=== PATIENT | female | born 1985 | race African-American/Black ===

== ENCOUNTER 2017-03-30 11:40 | Emergency (ER) | payer OTHER ==
--- NOTE | 2017-03-30 11:53 | PDOC ---
History of Present Illness - General History Source: Patient Exam Limitations: No Limitations - History of Present Illness Initial Comments: 03/30/17 15:58 The patient is a 32 year old female, BIBA with no significant past medical history who presents to the emergency department with the sudden onset of non radiating R sided chest pain today. The patient reports moving boxes in at work earlier today, when she felt a sudden onset of R shoulder/chest pain just as she was pushing them. She also reports difficulty taking a deep breath due to pain but denies SOB. She notes her chest pain is often made worse with any movement and deep inspiration. She denies recent fevers, chills, headache or dizziness. She denies recent nausea, vomit, diarrhea or constipation. She denies recent dysuria, frequency, urgency or hematuria. PT states she was in her USOH prior to this pain coming on. No hx similar pain. No tx tried. Allergies: NKA Past surgical history: None reported. Social history: Current smoker. +Marijuana use.Denies EtOH use. <Sammy Everett - Last Filed: 03/30/17 15:58> <Andreia Ledezma - Last Filed: 03/31/17 00:10> - General Stated Complaint: CHEST PAIN Time Seen by Provider: 03/30/17 11:44 Past History <Sammy Everett - Last Filed: 03/30/17 15:58> <Andreia Ledezma - Last Filed: 03/31/17 00:10> - Past Medical History Allergies/Adverse Reactions: Allergies Allergy/AdvReac Type Severity Reaction Status Date / Time Penicillins Allergy Mild Hives Verified 03/30/17 13:36 Home Medications: Ambulatory Orders Naproxen 500 mg PO BID PRN #10 tablet 03/30/17 Review of Systems - Review of Systems Able to Perform ROS?: Yes Comments:: 03/30/17 15:58 GENERAL/CONSTITUTIONAL: No fever or chills. No weakness. HEAD, EYES, EARS, NOSE AND THROAT: No change in vision. No ear pain or discharge. No sore throat. GASTROINTESTINAL: No nausea, vomiting, diarrhea or constipation. GENITOURINARY: No dysuria, frequency, or change in urination. CARDIOVASCULAR: +chest pain. no shortness of breath. RESPIRATORY: No cough, wheezing, or hemoptysis. MUSCULOSKELETAL: No joint or muscle swelling or pain. No neck or back pain. SKIN: No rash NEUROLOGIC: No headache, vertigo, loss of consciousness, or change in strength/ sensation. ENDOCRINE: No increased thirst. No abnormal weight change. HEMATOLOGIC/LYMPHATIC: No anemia, easy bleeding, or history of blood clots. ALLERGIC/IMMUNOLOGIC: No hives or skin allergy. <Sammy Everett - Last Filed: 03/30/17 15:58> *Physical Exam - Vital Signs Last Vital Signs Temp Pulse Resp BP Pulse Ox 98 F 51 L 18 109/76 98 03/30/17 12:10 03/30/17 12:10 03/30/17 12:10 03/30/17 12:10 03/30/17 12:10 - Physical Exam Comments: 03/30/17 15:59 GENERAL: Awake, alert, and fully oriented, in no acute distress HEAD: No signs of trauma EYES: PERRLA, EOMI, sclera anicteric, conjunctiva clear ENT: Auricles normal inspection, hearing grossly normal, nares patent, oropharynx clear without exudates. Moist mucosa NECK: Normal ROM, supple, no lymphadenopathy, JVD, or masses LUNGS: Breath sounds equal, clear to auscultation bilaterally. No wheezes, and no crackles HEART: Right parasternal pinpoint exquisite tenderness to palpation. Regular rate and rhythm, normal S1 and S2, no murmurs, rubs or gallops ABDOMEN: Soft, nontender, normoactive bowel sounds. No guarding, no rebound. No masses EXTREMITIES: Normal range of motion, no edema. No clubbing or cyanosis. No cords , erythema, or tenderness BACK: No midline spinal tenderness in cervical/thoracic/lumbar region NEUROLOGICAL: Normal speech, cranial nerves intact, negative pronator drift, 5/ 5 strength in all 4 extremities, normal sensation to light touch in all 4 extremities, normal cerebellar exam, normal gait, normal reflexes and tone SKIN: Warm, Dry, normal turgor, no rashes or lesions noted. <Sammy Everett - Last Filed: 03/30/17 15:58> Heart Score/ECG Review #1 03/30/17 12:13 Twelve-lead EKG was performed and reviewed by me. Sinus bradycardia, rate 55. Normal axis and intervals. No ST elevations or T-wave inversions. <Andreia Ledezma - Last Filed: 03/31/17 00:10> ED Treatment Course - ADDITIONAL ORDERS Additional order review: Laboratory Results 03/30/17 13:55 Urine HCG, Qual Negative - Medications Given in the ED: ED Medications Discontinued Medications Generic Name Dose Route Start Last Admin Trade Name Luis PRN Reason Stop Dose Admin Acetaminophen 1,000 mg 03/30/17 13:31 03/30/17 13:50 Tylenol - PO 03/30/17 13:32 1,000 mg ONCE ONE Administration Ketorolac Tromethamine 30 mg 03/30/17 15:28 03/30/17 15:41 Toradol Injection - IM 03/30/17 15:29 30 mg ONCE ONE Administration <Sammy Everett - Last Filed: 03/30/17 15:58> Medical Decision Making - Medical Decision Making 03/30/17 12:11 32-year-old female with no significant past medical history presents emergency Department with right-sided chest pain after pushing a heavy box at 10:50 AM this morning. Vitals unremarkable. Exam with reproducible chest pain consistent with costochondritis. EKG non ischemic. Pt does not meet any PERC criteria and thus unlikely PE. Pt with hx smoking, but no other risk factors for ACS. No personal or family hx of cardiac at young age. Story not consistent with cardiac pain and thus unlikely ACS. Plan is to check urine test, chest x-ray and control pain and reassess. 03/30/17 14:50 Patient reports improvement in pain after receiving Tylenol, but reports persistent pain. Urine test is negative. If negative will order Toradol and chest x-ray. 03/30/17 16:56 Urine test is negative. Patient received Toradol, feels better and is ambulating in the ED. Chest x-ray pending 03/30/17 17:14 CXR done, on my read is normal. Informed patient that radiology needs to offically read but we will call if abnormal. Pt reports improvement in pain. Appears clinically well, requests DC home. I discussed the physical exam findings, ancillary test results and final diagnoses with the patient. I answered all of the patient's questions. The patient was satisfied with the care received and felt comfortable with the discharge plan and treatment plan. The patient will call their primary care physician within 24 hours to arrange follow-up and will return to the Emergency Department with any new, persistent or worsening symptoms. <Andreia Ledezma - Last Filed: 03/31/17 00:10> *DC/Admit/Observation/Transfer - Attestations Scribe Attestion: 03/30/17 15:59 Documentation prepared by Sammy Everett, acting as medical data entry clerk for Andreia Ledezma MD, /DO. <Sammy Everett - Last Filed: 03/30/17 15:58> - Discharge Dispostion Admit: No - Attestations Physician Attestion: 03/30/17 17:18 I, Dr. Andreia Ledezma MD, attest that this document has been prepared under my direction and personally reviewed by me in its entirety. I further attest, that it accurately reflects all work, treatment, procedures and medical decision -making performed by me. <Andreia Ledezma - Last Filed: 03/31/17 00:10> Diagnosis at time of Disposition: Chest pain - Discharge Dispostion Disposition: HOME Condition at time of disposition: Stable - Prescriptions Prescriptions: Naproxen 500 mg PO BID PRN #10 tablet PRN Reason: Pain - Referrals - Patient Instructions Printed Discharge Instructions: DI for Chest Pain Additional Instructions: Follow-up with your primary care doctor within 1-2 days. Take naproxen as needed for pain. Return to the emergency department if you have any new, worsening or concerning symptoms.
[2017-03-30 12:12] VITALS: TEMP 98; BMI 25.9
[2017-03-30] MEDS ORDERED: ACETAMINOPHEN 500 MG TABLET (FP) PO ONE (13:31)
[2017-03-30] MEDS ORDERED: ACETAMINOPHEN 325 MG TABLET (FP) ONE (13:50)
[2017-03-30] MEDS ORDERED: KETOROLAC TROMETHAMINE 30 MG/1 ML VIAL IM ONE (15:28)
[2017-03-30] MEDS ORDERED: KETOROLAC TROMETHAMINE 30 MG/1 ML VIAL ONE (15:29)
--- NOTE | 2017-03-30 16:23 | EKG ---
Test Reason : Blood Pressure : / mmHG Vent. Rate : 055 BPM Atrial Rate : 055 BPM P-R Int : 134 ms QRS Dur : 080 ms QT Int : 452 ms P-R-T Axes : 054 046 028 degrees QTc Int : 432 ms SINUS BRADYCARDIA OTHERWISE NORMAL ECG NO PREVIOUS ECGS AVAILABLE Confirmed by CORNELIA IZAGUIRRE MD ([id number]) on 03/30/2017 4:23:01 PM Referred By: Confirmed By:CORNELIA IZAGUIRRE MD
[2017-03-30 17:26] VITALS: BP 110/60; PULSE 58
== END 2017-03-30 17:26 | disposition home or self-care (01) ==
LOC: JER 11:40
PROC: 3E0233Z Introduction of Anti-inflammatory into Muscle, Percutaneous Approach (ICD-10-PCS; principal; 2017-03-30)
DX: R07.89 Other chest pain (principal)
CPT/HCPCS: 71046-TC-FY; 84703; 93005; 93010; 99283-25